=== PATIENT | male | born 1960 | race Caucasian/White ===

== ENCOUNTER 2021-06-04 08:32 | Day surgery (SDC) | payer MEDICARE, MEDICAID ==
[2021-06-04] MEDS ORDERED: Sodium Chloride 0.9% 10 ML Syringe FLUSH PRN (08:45)
[2021-06-04] MEDS ORDERED: Lactated Ringers 1,000 ML IV SCH (08:45)
[2021-06-04] MEDS ORDERED: Midazolam 1 MG/ML 2 ML SDV ONE ×2 (08:51→09:51)
[2021-06-04] MEDS ORDERED: Propofol 200 MG/20 ML SDV ONE (08:52)
[2021-06-04] MEDS ORDERED: Midazolam 1 MG/ML 2 ML SDV IV ONE (09:52)
== END 2021-06-04 12:00 | disposition home or self-care (01) ==
LOC: LL.SDS 08:32
PROVIDERS: ATTEND Surgery
DX: K57.30 Diverticulosis of large intestine without perforation or abscess without bleeding (principal); B35.1 Tinea unguium; B18.2 Chronic viral hepatitis C; F41.9 Anxiety disorder, unspecified; F32.A Depression, unspecified; Z79.899 Other long term (current) drug therapy
CPT/HCPCS: 00812; J2250; J2704; J7120

== ENCOUNTER 2021-10-29 01:08 | Emergency (ER) | payer MEDICARE, MEDICAID ==
[2021-10-29] MEDS ORDERED: Sodium Chloride 0.9% 1,000 ML IV ONE ×2 (02:08→06:10)
[2021-10-29] MEDS ORDERED: Sodium Chloride 0.9% 10 ML Syringe FLUSH PRN (02:09)
[2021-10-29 03:19] LABS: ANION GAP 7.7 meq/L (7-15); CHLORIDE,CL 105 mmol/L (98-107); ESTIMATED GFR 102 mL/min (>=60); SODIUM,NA 141 mmol/L (136-145)
[2021-10-29] MEDS ORDERED: Promethazine 25 MG/ML SDV IM ONE (08:02)
== END 2021-10-29 09:45 | disposition left against medical advice (07) ==
LOC: LL.ED 01:08 → EEVIPCON 01:08 → LL.ED 09:45
DX: F19.10 Other psychoactive substance abuse, uncomplicated (principal); Z79.899 Other long term (current) drug therapy; Z72.0 Tobacco use
CPT/HCPCS: 36415; 80053; 80143; 80307; 83605; 83735; 85025; 93005; 96360; 96361; 99284; 99284-25; J2550; J7030